=== PATIENT | female | born 1950 | race Caucasian/White ===

== ENCOUNTER 2018-06-26 08:40 | Outpatient (CLI) | payer MEDICARE, BC | END 2018-06-26 08:41 | disposition home or self-care (01) | LOC: BICMRI 08:40 | PROVIDERS: ATTEND Chiropractor | DX: M54.5 Low back pain (principal); M79.605 Pain in left leg; M48.061 Spinal stenosis, lumbar region without neurogenic claudication; M99.83 Other biomechanical lesions of lumbar region | CPT/HCPCS: 72148 ==

== ENCOUNTER 2018-08-29 08:30 | Outpatient (CLI) | payer MEDICARE, BC ==
--- NOTE | 2018-08-29 10:28 | BD ---
BONE DENSITOMETRY USING DEXA: Date: 08/29/18 HISTORY: Postmenopausal screening for osteoporosis. FINDINGS: Lumbar Spine: BMD (g/cm2) L1 0.929 T-Score: -0.6 Z-Score: 1.2 L2 0.996 T-Score: -0.3 Z-Score: 1.7 L3 1.057 T-Score: -0.2 Z-Score: 1.9 L4 1.074 T-Score: 0.1 Z-Score: 2.3 L1-L4 1.018 T-Score: -0.3 Z-Score: 1.8 Femoral Neck: 0.693 T-Score: -1.4 Z-Score: 0.3 Total Femur: 0.986 T-Score: 0.4 Z-Score: 1.8 There has been interval improvement of 6.6% in the bone mineral density of the lumbar spine and an im provement of 17.4% in the bone mineral density of the proximal femur since 11/25/03. The 10 year fracture risk for a major osteoporotic fracture is 9.6% and for a hip fracture is 1.2%. IMPRESSION: Osteopenia. POS: [facility]
== END 2018-08-29 08:31 | disposition home or self-care (01) ==
LOC: BICMAMMO 08:30
PROVIDERS: ATTEND Internal Medicine
DX: Z12.31 Encounter for screening mammogram for malignant neoplasm of breast (principal); N95.9 Unspecified menopausal and perimenopausal disorder; M85.859 Other specified disorders of bone density and structure, unspecified thigh; Z80.3 Family history of malignant neoplasm of breast
CPT/HCPCS: 77063; 77067; 77080

== ENCOUNTER 2019-09-25 09:57 | Outpatient (CLI) | payer MEDICARE, BC ==
--- NOTE | 2019-09-25 11:20 | MMO ---
Bilateral MAMMO Bilat Screen [facility]. CLINICAL HISTORY: Patient is 68 years old and is seen for screening. The patient has the following family history of breast cancer: maternal grandmother, 70'S and maternal aunt, at age 30. The patient has no personal history of cancer. VIEWS: The views performed were: bilateral craniocaudal with tomosynthesis; bilateral mediolateral oblique with tomosynthesis; and bilateral exaggerated craniocaudal. FILMS COMPARED: The present examination has been compared to prior imaging studies performed at [facility] on 10/10/2013, 12/01/2014, 02/16/2016 and 08/29/2018. This study has been interpreted with the assistance of computer-aided detection. MAMMOGRAM FINDINGS: There are scattered fibroglandular densities. There are stable benign appearing calcifications seen in both breasts. There are no suspicious masses, suspicious calcifications, or new areas of architectural distortion. IMPRESSION: THERE IS NO MAMMOGRAPHIC EVIDENCE OF MALIGNANCY. A ROUTINE FOLLOW-UP MAMMOGRAM IN 1 YEAR IS RECOMMENDED. THE RESULTS OF THIS EXAM WERE SENT TO THE PATIENT. ACR BI-RADS Category 2 - Benign finding MAMMOGRAPHY NOTE: 1. A negative mammogram report should not delay a biopsy if a dominant of clinically suspicious mass is present. 2. Approximately 10% to 15% of breast cancers are not detected by mammography. 3. Adenosis and dense breasts may obscure an underlying neoplasm. Reported by: DORYS MERRITT MD Electonically Signed: [id number]
== END 2019-09-25 09:58 | disposition home or self-care (01) ==
LOC: BICMAMMO 09:57
PROVIDERS: ATTEND Internal Medicine
DX: Z12.31 Encounter for screening mammogram for malignant neoplasm of breast (principal); Z80.3 Family history of malignant neoplasm of breast
CPT/HCPCS: 77063; 77067

== ENCOUNTER 2020-10-26 07:47 | Outpatient (CLI) | payer MEDICARE, BC ==
--- NOTE | 2020-10-26 08:58 | BD ---
DEXA BONE MINERAL DENSITY STUDY: HISTORY: Osteoporosis screening. COMPARISON: DEXA scan 2017 and 2003. FINDINGS: Lumbar Spine: BMD (g/cm2) L1 0.876 T-Score: -1.0 0.9 L2 0.923 T-Score: -1.0 1.2 L3 1.255 T-Score: 1.6 3.8 L4 1.255 T-Score: 2.0 4.3 L1-L4 1.091 T-Score: 0.4 2.6 Change from the comparison is +7.2%, statistically significant. Femoral Neck: 0.676 T-Score: -1.6 0.3 Total Femur: 0.970 T-Score: 0.2 1.8 Change from the comparison is -1.6%. WHO CLASSIFICATION: Osteopenia. TEN-YEAR FRACTURE RISK: Major osteoporotic fracture 10% and hip fracture 1.6%. Impression: Osteopenia with fracture risk as above. POS: [facility]
--- NOTE | 2020-10-26 09:11 | MMO ---
Bilateral MAMMO Bilat Screen [facility]. CLINICAL HISTORY: Patient is 69 years old and is seen for screening. The patient has the following family history of breast cancer: maternal grandmother, 70'S; maternal aunt, at age 30 and cousin female, malignant (generic). The patient has no personal history of cancer. VIEWS: The views performed were: bilateral craniocaudal with tomosynthesis and bilateral mediolateral oblique with tomosynthesis. FILMS COMPARED: The present examination has been compared to prior imaging studies performed at [facility] on 12/01/2014, 02/16/2016, 08/29/2018 and 09/25/2019. This study has been interpreted with the assistance of computer-aided detection. MAMMOGRAM FINDINGS: There are scattered fibroglandular densities. Benign calcifications are noted bilaterally. There are no suspicious masses, suspicious calcifications, or new areas of architectural distortion. IMPRESSION: THERE IS NO MAMMOGRAPHIC EVIDENCE OF MALIGNANCY. A ROUTINE FOLLOW-UP MAMMOGRAM IN 1 YEAR IS RECOMMENDED. THE RESULTS OF THIS EXAM WERE SENT TO THE PATIENT. ACR BI-RADS Category 2 - Benign finding MAMMOGRAPHY NOTE: 1. A negative mammogram report should not delay a biopsy if a dominant of clinically suspicious mass is present. 2. Approximately 10% to 15% of breast cancers are not detected by mammography. 3. Adenosis and dense breasts may obscure an underlying neoplasm. Reported by: TATYANA RETANA MD Electonically Signed: [id number]
== END 2020-10-26 07:48 | disposition home or self-care (01) ==
LOC: BICMAMMO 07:47
PROVIDERS: ATTEND Internal Medicine
DX: Z12.31 Encounter for screening mammogram for malignant neoplasm of breast (principal); M85.89 Other specified disorders of bone density and structure, multiple sites; Z78.0 Asymptomatic menopausal state; Z80.3 Family history of malignant neoplasm of breast
CPT/HCPCS: 77063; 77067; 77080

== ENCOUNTER 2021-10-27 09:03 | Outpatient (CLI) | payer MEDICARE, BC | END 2021-10-27 09:04 | disposition home or self-care (01) | LOC: BICMAMMO 09:03 | PROVIDERS: ATTEND Internal Medicine | DX: Z12.31 Encounter for screening mammogram for malignant neoplasm of breast (principal); Z80.3 Family history of malignant neoplasm of breast | CPT/HCPCS: 77063; 77067 ==

== ENCOUNTER 2022-11-28 08:39 | Outpatient (CLI) | payer MEDICARE, BC | END 2022-11-28 08:40 | disposition home or self-care (01) | LOC: BICMAMMO 08:39 | PROVIDERS: ATTEND Internal Medicine | DX: Z12.31 Encounter for screening mammogram for malignant neoplasm of breast (principal); Z13.820 Encounter for screening for osteoporosis; Z78.0 Asymptomatic menopausal state; M85.851 Other specified disorders of bone density and structure, right thigh; M85.852 Other specified disorders of bone density and structure, left thigh; Z80.3 Family history of malignant neoplasm of breast | CPT/HCPCS: 77063; 77067; 77080 ==

== ENCOUNTER 2022-12-13 06:08 | Emergency (ER) | payer MEDICARE, BC ==
[2022-12-13] MEDS ORDERED: Metoclopramide HCl 10 MG/2 ML VIAL ONE (07:35)
[2022-12-13] MEDS ORDERED: diphenhydrAMINE 50 MG/ML VIAL ONE (07:35)
[2022-12-13] MEDS ORDERED: methylPREDNISolone Sod Succ 40 MG VIAL ONE (07:35)
[2022-12-13] MEDS ORDERED: Famotidine/PF 20 mg/2ml Vial ONE (07:35)
[2022-12-13 07:38] LABS: #Basophils 0.1 thou/uL (0.0-0.2); #Lymphocytes 1.4 thou/uL (1.20-3.40); #Neutrophils 11.2 thou/uL (1.40-6.50); %Basophils 0.5 % (0.0-1.0); %Eosinophils 0.2 % (0.0-10.0); %Lymphocytes 9.2 % (21.0-51.0); %Monocytes 13.4 % (0.0-10.0); %Neutrophils 76.7 % (42.0-75.0); Hemoglobin 13.3 g/dL (12.0-16.0); Mean Corpuscular HGB CONC 32.9 g/dL (32.0-36.0); Mean Corpuscular Hemoglobin 31.3 pg (27.0-31.0); Mean Corpuscular Volume 95.2 fl (78.0-98.0); Mean Platelet Volume 7.9 fL (7.4-10.4); Platelet Count 292 10x3/uL (130-400); Red Blood Cell (RBC) Count 4.25 mill/uL (4.20-5.40); White Blood Cell (WBC) Count 14.7 10x3/uL (4.8-10.8)
[2022-12-13 08:05] LABS: ALT (SGPT) 60 U/L (8-55); AST (SGOT) 98 U/L (5-34); Albumin 3.9 g/dL (3.4-4.8); Alkaline Phosphatase 132 U/L (40-110); Anion Gap 18 mmol/L (10-20); BUN (Urea Nitrogen) 23 mg/dL (9.8-20.1); Bilirubin, Total 0.5 mg/dL (0.2-1.2); Calc. Creatinine Clearance 0 mL/min (70-130); Calcium 9.2 mg/dL (7.8-10.44); Carbon Dioxide 22 mmol/L (23-31); Chloride 99 mmol/L (98-107); Estimated GFR 57; Globulin 3.3 g/dL (2.4-3.5); Glucose 115 mg/dL (83-110); Potassium 4.2 mmol/L (3.5-5.1); Protein, Total 7.2 g/dL (5.8-8.1); Sodium 135 mmol/L (136-145)
[2022-12-13] MEDS ORDERED: Iopamidol-370 76% 500 ML 1 ML ONE (11:46)
== END 2022-12-13 10:38 | disposition home or self-care (01) ==
LOC: ERS 06:08
DX: H66.92 Otitis media, unspecified, left ear (principal); I65.21 Occlusion and stenosis of right carotid artery; R11.2 Nausea with vomiting, unspecified; J01.00 Acute maxillary sinusitis, unspecified; D72.829 Elevated white blood cell count, unspecified; E03.9 Hypothyroidism, unspecified; E78.00 Pure hypercholesterolemia, unspecified
CPT/HCPCS: 36415; 70491; 80053; 83605; 84484; 85025; 87081; 87430; 93005; 96365; 96366; 96375; J1200; J2765; J2920; Q9967; S0028

== ENCOUNTER 2023-02-13 15:14 | Emergency (ER) | payer MEDICARE, BC ==
[2023-02-13 16:32] LABS: #Basophils 0.2 thou/uL (0.0-0.2); #Eosinphils 0.2 thou/uL (0.0-0.7); #Monocytes 1.4 thou/uL (0.11-0.59); #Neutrophils 9.6 thou/uL (1.40-6.50); %Basophils 1.4 % (0.0-1.0); %Eosinophils 1.4 % (0.0-10.0); %Lymphocytes 30.2 % (21.0-51.0); %Monocytes 8.8 % (0.0-10.0); %Neutrophils 58.3 % (42.0-75.0); Hemoglobin 15.2 g/dL (12.0-16.0); Mean Corpuscular Hemoglobin 30.8 pg (27.0-31.0); Mean Corpuscular Volume 96.5 fl (78.0-98.0); Mean Platelet Volume 7.6 fL (7.4-10.4); Platelet Count 360 10x3/uL (130-400); RBC Distribution Width 14.5 % (11.5-14.5); Red Blood Cell (RBC) Count 4.91 mill/uL (4.20-5.40); White Blood Cell (WBC) Count 16.4 10x3/uL (4.8-10.8)
[2023-02-13 16:52] LABS: ALT (SGPT) 28 U/L (8-55); AST (SGOT) 24 U/L (5-34); Albumin 4.3 g/dL (3.4-4.8); Alkaline Phosphatase 92 U/L (40-110); Anion Gap 14 mmol/L (10-20); BUN (Urea Nitrogen) 25 mg/dL (9.8-20.1); Bilirubin, Total 0.3 mg/dL (0.2-1.2); Calc. Creatinine Clearance 0 mL/min (70-130); Calcium 9.8 mg/dL (7.8-10.44); Carbon Dioxide 27 mmol/L (23-31); Chloride 104 mmol/L (98-107); Estimated GFR 59; Globulin 3.4 g/dL (2.4-3.5); Glucose 106 mg/dL (83-110); Magnesium 2.5 mg/dL (1.6-2.6); Potassium 4.3 mmol/L (3.5-5.1); Protein, Total 7.7 g/dL (5.8-8.1); Sodium 141 mmol/L (136-145)
== END 2023-02-13 17:17 | disposition home or self-care (01) ==
LOC: ERS 15:14
DX: R55 Syncope and collapse (principal); D72.829 Elevated white blood cell count, unspecified; E03.9 Hypothyroidism, unspecified; E78.00 Pure hypercholesterolemia, unspecified; Z79.82 Long term (current) use of aspirin; Z79.899 Other long term (current) drug therapy
CPT/HCPCS: 36415; 70450; 71045; 80053; 83735; 84484; 85025; 93005; 94760

== ENCOUNTER 2024-01-02 10:26 | Outpatient (CLI) | payer MEDICARE | END 2024-01-02 10:27 | disposition home or self-care (01) | LOC: BICMAMMO 10:26 | PROVIDERS: ATTEND Family Medicine | DX: Z12.31 Encounter for screening mammogram for malignant neoplasm of breast (principal); Z80.3 Family history of malignant neoplasm of breast | CPT/HCPCS: 77063; 77067 ==

== ENCOUNTER 2025-08-05 15:46 | Outpatient (CLI) | payer MEDICARE | END 2025-08-05 15:47 | disposition home or self-care (01) | LOC: CT 15:46 | PROVIDERS: ATTEND Family Medicine | DX: R10.9 Unspecified abdominal pain (principal) | CPT/HCPCS: 74176 ==